=== PATIENT | female | born 1930 | race Caucasian/White ===

== ENCOUNTER 2019-03-10 15:33 | Inpatient (IN) | payer MEDICARE | END 2019-03-13 13:40 | LOC: ORTHO 4S 15:33 | PROC: 0QS736Z Reposition Left Upper Femur with Intramedullary Internal Fixation Device, Percutaneous Approach (ICD-10-PCS; principal; 2019-03-11 15:48) | DX: S72.042A Displaced fracture of base of neck of left femur, initial encounter for closed fracture (principal); E43 Unspecified severe protein-calorie malnutrition; J44.1 Chronic obstructive pulmonary disease with (acute) exacerbation; M81.0 Age-related osteoporosis without current pathological fracture; F03.90 Unspecified dementia, unspecified severity, without behavioral disturbance, psychotic disturbance, mood disturbance, and anxiety ==

== ENCOUNTER 2019-07-23 17:53 | Inpatient (IN) | payer MEDICARE ==
[~2019-07-23] VITALS: Ht 157.5 cm; Wt 50.0 kg
[~2019-07-23 17:53] MED LIST: NO HOME MEDS
[2019-07-23] MEDS ORDERED: potassium CL 10mEq/100ml bag 100 ML IV PRN ×2 (18:20)
[2019-07-23] MEDS ORDERED: acetaminophen 325mg tablet PO PRN (18:20)
[2019-07-23] MEDS ORDERED: magnesium 4gm in 100ml NS 100 ML IV PRN (18:20)
[2019-07-23] MEDS ORDERED: potassium Cl 20 mEq SR tablet PO PRN (18:20)
[2019-07-23] MEDS ORDERED: ondansetron/PF 4mg/2ml inj IV PRN (18:20)
[2019-07-23] MEDS ORDERED: mag hydrox/Alum hydrox/simeth 30ml oral suspension PO PRN (18:20)
[2019-07-23] MEDS ORDERED: magnesium hydroxide 30ml (MOM) UD suspension PO PRN (18:20)
[2019-07-23] MEDS ORDERED: morphine 2 MG/ML inj. syringe IV PRN ×2 (18:20)
[2019-07-23] MEDS ORDERED: magnesium Cl slow-release 64mg tablet PO PRN (18:20)
[2019-07-23] MEDS ORDERED: magnesium 2GM in 50ml NS 50 ML IV PRN (18:20)
[2019-07-23 18:29] LABS: BASOPHILS % (AUTO) 0.3 % (0-1); EOSINOPHILS # (AUTO) 0.1 X10'3 (0-0.9); EOSINOPHILS % (AUTO) 0.7 % (0-6); HEMATOCRIT 39.4 % (35.0-45.0); HEMOGLOBIN 13.2 g/dl (12.0-16.0); LYMPHOCYTES # (AUTO) 0.4 X10'3 (1.1-4.8); LYMPHOCYTES % (AUTO) 4.5 % (21-51); MEAN CORPUSCULAR HGB CONC 33.5 g/dL (33.0-36.5); MEAN CORPUSCULAR VOLUME 92.6 FL (78-98); MONOCYTES # (AUTO) 0.7 X10'3 (0-0.9); MONOCYTES % (AUTO) 8.4 % (2-12); NEUTROPHILS # (AUTO) 7.3 X10'3 (1.8-7.7); NEUTROPHILS % (AUTO) 86.1 % (42-75); PLATELET COUNT 211 X10'3 (140-440); RED BLOOD COUNT 4.25 X10'6 (4.20-5.60); RED CELL DISTRIBUTION WIDTH 15.4 % (11.5-14.5); WHITE BLOOD COUNT 8.5 X10'3 (4.5-11.0)
[2019-07-23 18:39] LABS: PARTIAL THROMBOPLASTIN TIME 28 SECONDS (22-32)
[2019-07-23 18:42] LABS: ANION GAP 8 (8-16); BLOOD UREA NITROGEN 16 MG/DL (7-18); CHLORIDE 98 MMOL/L (99-107); CREATININE 0.84 MG/DL (0.40-0.90); GLUCOSE 88 MG/DL (70-104); POTASSIUM 4.3 MMOL/L (3.5-5.1); SODIUM 134 MMOL/L (135-145); TOTAL CARBON DIOXIDE 27.7 MMOL/L (24-32); eGFR 64 ML/MIN
[2019-07-23 18:43] LABS: ALANINE AMINOTRANSFERASE 24 U/L (12-78); ALBUMIN 3.7 G/DL (3.4-5.0); ALBUMIN/GLOBULIN RATIO 0.9 (1.1-1.5); ALKALINE PHOSPHATASE 125 IU/L (46-116); ASPARTATE AMINO TRANSFERASE 23 U/L (10-37); TOTAL PROTEIN 7.6 G/DL (6.4-8.2)
[2019-07-23 19:04] LABS: CLARITY,URINE CLOUDY (Clear); COLOR,URINE YELLOW (Yellow); GLUCOSE, URINE NEGATIVE (Neg); KETONES,URINE 15 mg/dl (Neg); LEUKOCYTE ESTERASE ,URINE SMALL (Neg); NITRITES, URINE NEGATIVE (Neg); OCCULT BLOOD,URINE TRACE-INTACT (Neg); PROTEIN,URINE TRACE mg/dl (Neg); UA COLLECTION TYPE CLN CATCH MIDSTREAM; UROBILINOGEN,URINE 0.2 E.U/dL (0.2-1.0)
[2019-07-23 19:12] LABS: BACTERIA,URINE 1+ /HPF (Neg); SQUAMOUS EPITHELIAL CELL,UR MODERATE /LPF (FEW); WBC,URINE 50-100 /HPF (0-4)
[2019-07-23 19:13] LABS: MUCUS STRANDS FEW /LPF (Neg); RENAL CELLS, URINE FEW /HPF; TRANSITIONAL EPI CELLS,URINE FEW /HPF
[2019-07-23 19:45] VITALS: BP 172/92
[2019-07-23] MEDS ORDERED: heparin, porcine 5000 units/ml vial SQ SCH (20:00)
[2019-07-23] MEDS ORDERED: METO25TA6 PO (20:44)
[2019-07-23] MEDS ORDERED: POTA8CAP20 PO (20:44)
[2019-07-23] MEDS ORDERED: DOCU100C41 PO (20:44)
[2019-07-23] MEDS ORDERED: ACET-812 PO (20:44)
[2019-07-23] MEDS ORDERED: OMEP20TA23 PO (20:44)
[2019-07-23] MEDS ORDERED: IPRA4AER IH (20:44)
[2019-07-23 22:00] VITALS: BP 138/79
--- NOTE | 2019-07-24 02:56 | NUR ---
reviewed and agree with SRN assessment.
[2019-07-24 06:00] VITALS: BP 156/84
--- NOTE | 2019-07-24 06:22 | NUR ---
Problems reprioritized. Patient report given, questions answered & plan of care reviewed with MARYBETH Gracia.
[2019-07-24 07:18] LABS: BASOPHILS % (AUTO) 0.4 % (0-1); EOSINOPHILS # (AUTO) 0.1 X10'3 (0-0.9); EOSINOPHILS % (AUTO) 1.8 % (0-6); HEMATOCRIT 34.8 % (35.0-45.0); HEMOGLOBIN 11.8 g/dl (12.0-16.0); LYMPHOCYTES # (AUTO) 0.3 X10'3 (1.1-4.8); LYMPHOCYTES % (AUTO) 5.9 % (21-51); MEAN CORPUSCULAR HEMOGLOBIN 31.3 PG (27.0-31.0); MEAN CORPUSCULAR VOLUME 92.3 FL (78-98); MONOCYTES # (AUTO) 0.8 X10'3 (0-0.9); MONOCYTES % (AUTO) 13.8 % (2-12); NEUTROPHILS # (AUTO) 4.6 X10'3 (1.8-7.7); NEUTROPHILS % (AUTO) 78.1 % (42-75); PLATELET COUNT 195 X10'3 (140-440); RED BLOOD COUNT 3.77 X10'6 (4.20-5.60); RED CELL DISTRIBUTION WIDTH 15.4 % (11.5-14.5); WHITE BLOOD COUNT 5.8 X10'3 (4.5-11.0)
[2019-07-24 07:27] LABS: ALBUMIN 3.2 G/DL (3.4-5.0); ANION GAP 9 (8-16); BLOOD UREA NITROGEN 19 MG/DL (7-18); BUN/CREATININE RATIO 20.7 (6.6-38.0); CALCIUM 8.8 MG/DL (8.5-10.1); CHLORIDE 101 MMOL/L (99-107); CREATININE 0.92 MG/DL (0.40-0.90); GLUCOSE 79 MG/DL (70-104); MAGNESIUM 1.8 MG/DL (1.5-2.4); SODIUM 136 MMOL/L (135-145); eGFR 58 ML/MIN
[2019-07-24] MEDS: K and/or MAG REPLACEMENT MC SCH (08:00)
--- NOTE | 2019-07-24 09:04 | NUR ---
PAGER ID: [phone] MESSAGE: [phone] Ligia Delaney Can you please address [facility]. [facility] [id number]
[2019-07-24 10:00] VITALS: BP 157/83
--- NOTE | 2019-07-24 11:26 | NUR ---
page to Dr. Nolasco MESSAGE: [phone] Ligia Delaney Can I get some Ativan for the MRI, patient has claustrophobic. Radha [phone]
[2019-07-24] MEDS ORDERED: LORazepam 2 mg/ml vial IV ONE ×2 (12:00→15:55)
[2019-07-24] MEDS ORDERED: ipratropium/albuterol 3ml nebule IH SCH (13:00)
--- NOTE | 2019-07-24 13:18 | NUR ---
Spoke with MRI, it will be another hour until patient pick-up
[2019-07-24] MEDS: dextrose 5%-normal saline 1,000 ML IV SCH (13:32)
[2019-07-24] MEDS: ipratropium/albuterol 3ml nebule IH SCH ×2 (15:00→19:15)
[2019-07-24] MEDS ORDERED: diphenhydrAMINE 50 mg/ml inj IV ONE (16:25)
[2019-07-24] MEDS ORDERED: flumazenil 0.1 mg/ml inj. IV PRN (17:55)
[2019-07-24 18:00] VITALS: BP 161/104
--- NOTE | 2019-07-24 18:40 | NUR ---
Problems reprioritized. Patient report given, questions answered & plan of care reviewed with Ludmila Juarez RN. Patient back from mri, continuos pulse ox on.
[2019-07-24 20:00] VITALS: BP 94/51
[2019-07-24] MEDS: metoprolol tartrate 25mg tablet PO SCH (20:00)
[2019-07-24 22:00] VITALS: BP 94/51
--- NOTE | 2019-07-24 22:00 | NUR ---
patient arousable to painful stimulus. She opened her eyes and pulled at her covers when repositioning. Did not administer reversal agent for Ativan. patient cont. pulse ox on. continues to sleep, but is starting to pull on O2 tubing and pick at her pulse ox stickers.
--- NOTE | 2019-07-25 02:00 | NUR ---
patient now opening her eyes and respond to verbal stimulus. still very sleepy. replaced O2 sensor on her finger. no longer needing O2
[2019-07-25] MEDS: dextrose 5%-normal saline 1,000 ML IV SCH ×2 (02:20→19:31)
--- NOTE | 2019-07-25 03:12 | NUR ---
REVIEWED AND AGREE WITH STUDENT NURSE ASSESSMENT.
[2019-07-25 06:00] VITALS: BP 153/108
--- NOTE | 2019-07-25 06:22 | NUR ---
Problems reprioritized. Patient report given, questions answered & plan of care reviewed with MARYBETH Garcia.
[2019-07-25 07:35] LABS: BASOPHILS % (AUTO) 0.7 % (0-1); EOSINOPHILS # (AUTO) 0.1 X10'3 (0-0.9); EOSINOPHILS % (AUTO) 1.8 % (0-6); HEMATOCRIT 34.5 % (35.0-45.0); HEMOGLOBIN 11.7 g/dl (12.0-16.0); LYMPHOCYTES # (AUTO) 0.3 X10'3 (1.1-4.8); LYMPHOCYTES % (AUTO) 5.2 % (21-51); MEAN CORPUSCULAR HGB CONC 33.8 g/dL (33.0-36.5); MEAN CORPUSCULAR VOLUME 91.5 FL (78-98); MEAN PLATELET VOLUME 6.8 FL (7.4-10.4); MONOCYTES # (AUTO) 0.9 X10'3 (0-0.9); MONOCYTES % (AUTO) 13.8 % (2-12); NEUTROPHILS % (AUTO) 78.5 % (42-75); PLATELET COUNT 217 X10'3 (140-440); RED BLOOD COUNT 3.77 X10'6 (4.20-5.60); RED CELL DISTRIBUTION WIDTH 15.2 % (11.5-14.5); WHITE BLOOD COUNT 6.4 X10'3 (4.5-11.0)
[2019-07-25 07:42] LABS: ANION GAP 9 (8-16); BLOOD UREA NITROGEN 16 MG/DL (7-18); CALCIUM 8.6 MG/DL (8.5-10.1); CHLORIDE 104 MMOL/L (99-107); GLUCOSE 94 MG/DL (70-104); MAGNESIUM 1.7 MG/DL (1.5-2.4); POTASSIUM 3.6 MMOL/L (3.5-5.1); SODIUM 139 MMOL/L (135-145); TOTAL CARBON DIOXIDE 26.5 MMOL/L (24-32); eGFR 68 ML/MIN
[2019-07-25] MEDS: potassium chloride 8mEq ER tablet PO SCH (08:00)
[2019-07-25] MEDS: pantoprazole 40mg Tablet.DR PO SCH (08:00)
[2019-07-25] MEDS: docusate sod 100mg capsule PO SCH (08:00)
[2019-07-25] MEDS: K and/or MAG REPLACEMENT MC SCH (08:00)
[2019-07-25] MEDS: metoprolol tartrate 25mg tablet PO SCH ×2 (08:04→19:30)
[2019-07-25] MEDS: ipratropium/albuterol 3ml nebule IH SCH ×4 (08:12→20:03)
[2019-07-25 10:00] VITALS: BP 135/60
[2019-07-25] MEDS: HYDROcodone/acetaminophen 5mg/325mg tablet PO PRN (16:36)
[2019-07-25 18:00] VITALS: BP 147/85
--- NOTE | 2019-07-25 18:10 | NUR ---
Received report from Radha RUEDA. assumed care of patient.
--- NOTE | 2019-07-25 18:15 | NUR ---
Problems reprioritized. Patient report given, questions answered & plan of care reviewed with Juliann RN.
[2019-07-25 22:07] VITALS: BP 133/78
[2019-07-26] MEDS: dextrose 5%-normal saline 1,000 ML IV SCH (05:42)
[2019-07-26 06:00] VITALS: BP 156/76
--- NOTE | 2019-07-26 06:15 | NUR ---
Gave report to Jesus RUEDA.
--- NOTE | 2019-07-26 06:37 | NUR ---
Patient in room ORTHO 4009. I have received report from Juliann RUEDA and had the opportunity to ask questions and assume patient care.
[2019-07-26 07:09] LABS: BASOPHILS # (AUTO) 0.1 X10'3 (0-0.2); BASOPHILS % (AUTO) 0.7 % (0-1); EOSINOPHILS # (AUTO) 0.1 X10'3 (0-0.9); EOSINOPHILS % (AUTO) 1.3 % (0-6); HEMATOCRIT 31.7 % (35.0-45.0); HEMOGLOBIN 10.7 g/dl (12.0-16.0); LYMPHOCYTES # (AUTO) 0.4 X10'3 (1.1-4.8); LYMPHOCYTES % (AUTO) 4.6 % (21-51); MEAN CORPUSCULAR HGB CONC 33.7 g/dL (33.0-36.5); MEAN CORPUSCULAR VOLUME 91.9 FL (78-98); MEAN PLATELET VOLUME 6.8 FL (7.4-10.4); MONOCYTES # (AUTO) 0.8 X10'3 (0-0.9); NEUTROPHILS # (AUTO) 6.4 X10'3 (1.8-7.7); NEUTROPHILS % (AUTO) 83.4 % (42-75); PLATELET COUNT 199 X10'3 (140-440); RED BLOOD COUNT 3.45 X10'6 (4.20-5.60); RED CELL DISTRIBUTION WIDTH 15.2 % (11.5-14.5); WHITE BLOOD COUNT 7.7 X10'3 (4.5-11.0)
[2019-07-26] MEDS: potassium chloride 8mEq ER tablet PO SCH (07:11)
[2019-07-26] MEDS: docusate sod 100mg capsule PO SCH (07:11)
[2019-07-26] MEDS: pantoprazole 40mg Tablet.DR PO SCH (07:11)
[2019-07-26] MEDS: metoprolol tartrate 25mg tablet PO SCH ×2 (07:13→20:07)
[2019-07-26] MEDS: HYDROcodone/acetaminophen 5mg/325mg tablet PO PRN ×2 (07:23→15:09)
[2019-07-26] MEDS: K and/or MAG REPLACEMENT MC SCH (07:23)
[2019-07-26 08:12] LABS: ALBUMIN 2.8 G/DL (3.4-5.0); ANION GAP 9 (8-16); BLOOD UREA NITROGEN 10 MG/DL (7-18); BUN/CREATININE RATIO 12.3 (6.6-38.0); CALCIUM 7.8 MG/DL (8.5-10.1); CHLORIDE 108 MMOL/L (99-107); CREATININE 0.81 MG/DL (0.40-0.90); GLUCOSE 300 MG/DL (70-104); MAGNESIUM 1.5 MG/DL (1.5-2.4); SODIUM 142 MMOL/L (135-145); TOTAL CARBON DIOXIDE 24.8 MMOL/L (24-32); eGFR 67 ML/MIN
[2019-07-26] MEDS: ipratropium/albuterol 3ml nebule IH SCH ×4 (08:19→20:20)
--- NOTE | 2019-07-26 08:57 | NUR ---
emelina hospitalist [phone] critical K of 3.0,replacement already ordered will replace, will continue to monitor
[2019-07-26] MEDS: potassium Cl 20 mEq SR tablet PO PRN ×2 (09:05→15:08)
[2019-07-26 10:00] VITALS: BP 129/67
[2019-07-26 18:00] VITALS: BP 137/77
--- NOTE | 2019-07-26 18:22 | NUR ---
Problems reprioritized. Patient report given, questions answered & plan of care reviewed with Lisa RUEDA.
[2019-07-26 22:00] VITALS: BP 138/65
[2019-07-27 06:30] VITALS: BP 145/70
--- NOTE | 2019-07-27 06:30 | NUR ---
Patient in room ORTHO 4009A. I have received report from Lisa RUEDA and had the opportunity to ask questions and assume patient care.
[2019-07-27 06:39] LABS: EOSINOPHILS # (AUTO) 0.1 X10'3 (0-0.9); LYMPHOCYTES # (AUTO) 0.3 X10'3 (1.1-4.8); MEAN CORPUSCULAR VOLUME 93.1 FL (78-98)
[2019-07-27 06:42] LABS: BASOPHILS % (AUTO) 0 % (0-1); EOSINOPHILS % (AUTO) 1.4 % (0-6); HEMOGLOBIN 11.1 g/dl (12.0-16.0); LYMPHOCYTES % (AUTO) 3.9 % (21-51); MEAN CORPUSCULAR HEMOGLOBIN 31.3 PG (27.0-31.0); MEAN CORPUSCULAR HGB CONC 33.6 g/dL (33.0-36.5); MONOCYTES % (AUTO) 12.1 % (2-12); NEUTROPHILS # (AUTO) 6.7 X10'3 (1.8-7.7); NEUTROPHILS % (AUTO) 82.6 % (42-75); PLATELET COUNT 207 X10'3 (140-440); RED BLOOD COUNT 3.55 X10'6 (4.20-5.60); RED CELL DISTRIBUTION WIDTH 15.6 % (11.5-14.5); WHITE BLOOD COUNT 8.1 X10'3 (4.5-11.0)
[2019-07-27 06:52] LABS: ANION GAP 10 (8-16); BLOOD UREA NITROGEN 13 MG/DL (7-18); BUN/CREATININE RATIO 14.4 (6.6-38.0); CHLORIDE 107 MMOL/L (99-107); GLUCOSE 87 MG/DL (70-104); MAGNESIUM 1.7 MG/DL (1.5-2.4); POTASSIUM 4.4 MMOL/L (3.5-5.1); SODIUM 140 MMOL/L (135-145); TOTAL CARBON DIOXIDE 23.3 MMOL/L (24-32); eGFR 59 ML/MIN
[2019-07-27] MEDS: metoprolol tartrate 25mg tablet PO SCH ×2 (07:37→19:44)
[2019-07-27] MEDS: potassium chloride 8mEq ER tablet PO SCH (07:37)
[2019-07-27] MEDS: pantoprazole 40mg Tablet.DR PO SCH (07:37)
[2019-07-27] MEDS: docusate sod 100mg capsule PO SCH (07:37)
[2019-07-27] MEDS: K and/or MAG REPLACEMENT MC SCH (08:00)
--- NOTE | 2019-07-27 08:26 | NUR ---
Paged Dr Nolasco PAGER ID: [phone] MESSAGE: [facility] RE Nicolas Delaney [id number]. Pt has DNR band on and signed DNR POLST in chart but computer order states pt is Full Code. Can you change computer order? Thank you
[2019-07-27] MEDS: ipratropium/albuterol 3ml nebule IH SCH ×4 (08:45→19:50)
[2019-07-27] MEDS: HYDROcodone/acetaminophen 5mg/325mg tablet PO PRN (09:26)
[2019-07-27 10:00] VITALS: BP 171/83
[2019-07-27 10:30] VITALS: BP 140/89
[2019-07-27 18:00] VITALS: BP 153/92
--- NOTE | 2019-07-27 18:25 | NUR ---
Problems reprioritized. Patient report given, questions answered & plan of care reviewed with Swapna RUEDA.
--- NOTE | 2019-07-27 18:50 | NUR ---
Patient in room ORTHO 4009. I have received report from MARYBETH DELGADO and had the opportunity to ask questions and assume patient care. Addendum: 07/27/19 at 1850 by Swapna Marcano RN Amended: Links added.
[2019-07-27 21:00] VITALS: BP 169/92
[2019-07-28 06:00] VITALS: BP 173/97
[2019-07-28 06:16] LABS: BASOPHILS % (AUTO) 0.1 % (0-1); EOSINOPHILS # (AUTO) 0.1 X10'3 (0-0.9); EOSINOPHILS % (AUTO) 1.9 % (0-6); HEMATOCRIT 35.2 % (35.0-45.0); HEMOGLOBIN 11.6 g/dl (12.0-16.0); LYMPHOCYTES # (AUTO) 0.4 X10'3 (1.1-4.8); LYMPHOCYTES % (AUTO) 6.1 % (21-51); MEAN CORPUSCULAR HEMOGLOBIN 30.6 PG (27.0-31.0); MEAN CORPUSCULAR HGB CONC 33.1 g/dL (33.0-36.5); MEAN CORPUSCULAR VOLUME 92.6 FL (78-98); MEAN PLATELET VOLUME 6.9 FL (7.4-10.4); MONOCYTES # (AUTO) 0.8 X10'3 (0-0.9); MONOCYTES % (AUTO) 11.1 % (2-12); NEUTROPHILS # (AUTO) 5.7 X10'3 (1.8-7.7); NEUTROPHILS % (AUTO) 80.8 % (42-75); PLATELET COUNT 230 X10'3 (140-440); RED CELL DISTRIBUTION WIDTH 15.7 % (11.5-14.5)
--- NOTE | 2019-07-28 06:17 | NUR ---
Problems reprioritized. Patient report given, questions answered & plan of care reviewed with MARYBETH Sewell. Addendum: 07/28/19 at 0618 by Swapna Marcano RN Amended: Links added.
--- NOTE | 2019-07-28 06:36 | NUR ---
Patient in room ORTHO 4009. I have received report from Swapna RUEDA and had the opportunity to ask questions and assume patient care.
[2019-07-28 06:51] LABS: ALBUMIN 3.2 G/DL (3.4-5.0); ANION GAP 12 (8-16); BLOOD UREA NITROGEN 14 MG/DL (7-18); BUN/CREATININE RATIO 17.3 (6.6-38.0); CHLORIDE 99 MMOL/L (99-107); CREATININE 0.81 MG/DL (0.40-0.90); GLUCOSE 84 MG/DL (70-104); MAGNESIUM 1.7 MG/DL (1.5-2.4); POTASSIUM 3.7 MMOL/L (3.5-5.1); SODIUM 134 MMOL/L (135-145); TOTAL CARBON DIOXIDE 23.1 MMOL/L (24-32); eGFR 67 ML/MIN
[2019-07-28] MEDS: K and/or MAG REPLACEMENT MC SCH ×2 (07:31→07:59)
[2019-07-28] MEDS: docusate sod 100mg capsule PO SCH (07:57)
[2019-07-28] MEDS: metoprolol tartrate 25mg tablet PO SCH (07:58)
[2019-07-28] MEDS: potassium chloride 8mEq ER tablet PO SCH (07:58)
[2019-07-28] MEDS: pantoprazole 40mg Tablet.DR PO SCH (07:58)
[2019-07-28] MEDS: ipratropium/albuterol 3ml nebule IH SCH (08:07)
[2019-07-28 10:00] VITALS: BP 161/90
--- NOTE | 2019-07-28 10:35 | NUR ---
kolby hernandez inplace Addendum: 07/28/19 at 1037 by Donato Lezama RN Amended: Links added.
--- NOTE | 2019-07-28 10:42 | NUR ---
Initial: Pt admit w/ T-12 fx AOx1. PO 0-25% meals; pain when eating per MD note. LBM 07/22; RD d/w RN for additional bowel care possibly opioid antagonist since receiving norco per MD approval. Likely also effecting PO. Sacral PU noted per EMR. Ensure pudding TIDWM added for additional needs. Pt pending d/c today per RN. Given low PO since admit in addition to mild weakness pt qualifies for non-severe malnutrition at this time; MD notified. Not appropriate for ed at this time. Will monitor for additional protein and bowel care needs. Rec: 1. continue regular diet 2. ensure pudding TIDWM 3. weekly wts Addendum: 07/28/19 at [address] Amended: Links added.
--- NOTE | 2019-07-28 11:09 | NUR ---
Patient safe DC with the [facility] personnel. all belongings with patient.
--- NOTE | 2019-07-28 11:14 | NUR ---
Problems reprioritized. Patient report given, questions answered & plan of care reviewed with Tayo RUEDA.
== END 2019-07-28 11:09 | DRG 543 ==
LOC: ER 17:54 → ORTHO 4S 19:57
PROVIDERS: ADMIT Hospitalist; ATTEND Hospitalist
DX: M80.08XA Age-related osteoporosis with current pathological fracture, vertebra(e), initial encounter for fracture (principal); M62.82 Rhabdomyolysis; F03.90 Unspecified dementia, unspecified severity, without behavioral disturbance, psychotic disturbance, mood disturbance, and anxiety; I10 Essential (primary) hypertension; J44.9 Chronic obstructive pulmonary disease, unspecified; W18.39XA Other fall on same level, initial encounter; Z96.1 Presence of intraocular lens; R29.6 Repeated falls; Z86.73 Personal history of transient ischemic attack (TIA), and cerebral infarction without residual deficits; Y93.89 Activity, other specified; Y92.098 Other place in other non-institutional residence as the place of occurrence of the external cause; Y99.8 Other external cause status; Z88.8 Allergy status to other drugs, medicaments and biological substances; Z91.012 Allergy to eggs; Z90.49 Acquired absence of other specified parts of digestive tract
CPT/HCPCS: 36415; 71045; 72146; 72148; 80048; 80053; 81001; 83735; 85025; 85610; 85730; 87081; 87088; 92508; 92616; 93005; 94640; 94760; 97110; 97112; 97116; 97162; 97530; 99285; G0378; J1200; J2060; J7042